=== PATIENT | male | born 1985 | race Caucasian/White ===

== ENCOUNTER 2019-08-22 00:30 | Emergency (ER) | payer OTHER, SELFPAY ==
[2019-08-22 00:36] VITALS: BP 135/79; PULSE 82; RESP 16; TEMP 36.7; O2SAT 98; BMI 27.5
--- NOTE | 2019-08-22 00:40 | CT_ITS ---
PROCEDURE: CT ABDOMEN PELVIS W CON CLINICAL INDICATION: TRAUMA TO CHEST/ABD WALL Blunt trauma with injury and pain, contusion/abrasion or hematoma following injury Mid epigastric pain COMPARISON: No exams were available for comparison TECHNIQUE: IV Contrast: 75ML OPTIRAY 350 Oral Contrast None Axial images obtained with sagittal and coronal reformats. All CT scans at the facility use one or more dose reduction, viz: automated exposure control, ma/kV adjustment per patient size (including targeted exams where dose is matched to indication, i.e. head), or iterative reconstruction technique. FINDINGS: LOWER THORAX: 4 mm subpleural opacity right middle lobe laterally nonspecific. No acute finding. ABDOMEN & PELVIS: The liver, spleen, adrenal glands, gallbladder, pancreas, and kidneys have an unremarkable appearance. There is a small hiatal hernia with mild thickening of the GE junction nonspecific. No intestinal obstruction or free air. There is a mild amount of retained colonic feces. Unremarkable appearing appendix. There is a moderate-sized right inguinal hernia with heterogeneous attenuation of the fat within the hernia. No bowel evident within the hernia. There may be a small amount fluid in the hernia posteriorly. IMPRESSION: Moderate-sized right inguinal hernia with heterogeneous attenuation. Please correlate with clinical parameters. No acute findings. Please see above for detail Dictated by: Viral Patten MD 08/22/2019 08:07 Electronically signed by Viral Patten MD in [facility] 08/22/2019 08:07
--- NOTE | 2019-08-22 00:40 | CT_ITS ---
PROCEDURE: CT ANGIO CHEST CLINCIAL INDICATION: TRAUMA TO CHEST/ABD WALL Blunt trauma with injury and pain, contusion/abrasion or hematoma following injury COMPARISON: No exams were available for comparison TECHNIQUE: IV Contrast: 70ML OPTIRAY 350 Axial images obtained with sagittal and coronal reformats. All CT scans at the facility use one or more dose reduction, viz: automated exposure control, ma/kV adjustment per patient size (including targeted exams where dose is matched to indication, i.e. head), or iterative reconstruction technique. FINDINGS: HEART AND MEDIASTINAL STRUCTURES: Faint increased density noted in the anterior mediastinal fat and may be related to residual thymic tissue. No acute finding.. LUNGS AND PLEURAL SPACES: 4 mm noncalcified nodule right middle lobe. 4 mm noncalcified nodule subpleural right middle lobe. 4 mm noncalcified nodule right lower lobe superior segment. There are a few small air cyst in both lungs. BONY STRUCTURES: Prominent thoracic kyphosis with wedging T9-T8 and T7 which appears chronic UPPER ABDOMEN: Unremarkable. ADDITIONAL FINDINGS: No other significant abnormalities. IMPRESSION: 1. No acute finding. 2. There are 3 noncalcified pulmonary nodules each measuring approximately 4 mm. Recommend six-month follow-up 3. Thoracic kyphosis Dictated by: iVral Patten MD 08/22/2019 08:12 Electronically signed by Viral Patten MD in [place] 08/22/2019 08:12
--- NOTE | 2019-08-22 00:46 | PC.NURSE ---
PT TO RAD AT THIS TIME
[2019-08-22 00:52] LABS: Basophils # 0.1 K/mm3 (0-0.2); Basophils % 0.6 % (0.1-2.0); Eosinophils # 0.3 K/mm3 (0.0-0.4); Eosinophils % 2.7 % (0.1-12.0); Hematocrit 43.6 % (42.0-52.0); Hemoglobin 14.9 g/dL (14.1-18.0); Lymphocytes # 2.9 K/mm3 (0.7-4.5); Lymphocytes % 23.8 % (10-50); Mean Corpuscular HGB Conc 34.2 g/dL (31.8-35.4); Mean Corpuscular Hemoglobin 30.2 pg (27.0-31.2); Mean Corpuscular Volume 88.2 fl (80-94); Mean Platelet Volume 8.9 fl (7.4-10.4); Monocytes # 0.9 K/mm3 (0.1-1.0); Monocytes % 7.5 % (1.7-9.3); Neutrophils # 7.8 K/mm3 (1.8-7.8); Neutrophils % 65.2 % (37.0-80.0); Platelet Count 213 K/mm3 (142-424); Red Blood Count 4.94 M/mm3 (4.60-6.20); Red Cell Distribution Width 13.7 % (11.5-17.5)
--- NOTE | 2019-08-22 00:58 | XR_ITS ---
PROCEDURE: XR CHEST PORTABLE CLINICAL HISTORY: CHEST WALL TRAUMA Blunt trauma with injury and pain, contusion/abrasion or hematoma following injury COMPARISON: CT ANGIO CHEST from 08/22/2019 FINDINGS: The cardiomediastinal silhouette and pulmonary vascularity are within normal limits. The lungs are clear without infiltrates, suspicious nodules, or pleural effusions. No acute bony abnormalities. IMPRESSION: No acute findings. Dictated by: Viral Patten MD 08/22/2019 06:50 Electronically signed by Viral Patten MD in [facility] 08/22/2019 06:50
[2019-08-22 01:00] LABS: Alanine Aminotransferase 30 U/L (12-78); Albumin Level 5.2 g/dl (3.5-5.0); Albumin/Globulin Ratio 1.4 (1.1-1.8); Alkaline Phosphatase 105 U/L (38-126); Anion Gap 12.8 mEq/L (5-15); Aspartate Amino Transferase 46 U/L (17-59); Bilirubin,Total 0.5 mg/dl (0.2-1.3); Blood Urea Nitrogen 21 mg/dl (9-20); Calcium 9.4 mg/dl (8.4-10.2); Carbon Dioxide 30 mmol/L (22.0-30.0); Chloride 98 mmol/L (98-107); Creatinine Clearance Estimated 127 mL/min (50-200); Estimated Glomerular Filt Rate 85 ml/min (>60); GFR (African American) 103 ML/MIN (>60); Globulin 3.8 g/dL (1.3-3.2); Glucose 116 mg/dl (74-100); Potassium 4.8 mmoL/L (3.5-5.1); Sodium 136 mmol/L (136-145)
--- NOTE | 2019-08-22 01:40 | [facility].EDNVD ---
ED Disposition Clinical Impression: Blunt chest trauma Qualifiers: Encounter type: initial encounter Qualified Code(s): S29.8XXA - Other specified injuries of thorax, initial encounter Disposition: Home, Self-Care Condition on Discharge: Good Instructions: DI for Atypical Chest Pain Additional Instructions: use meds and see pcp for follo wup Prescriptions: predniSONE [Prednisone 20mg Tab] 20 mg PO BID #10 tab Prescription Printed Ketorolac Tromethamine [Toradol 10mg tablet] 10 mg PO Q6H 2 Days #10 tab Prescription Printed Referrals: Erik Orellana MD [Primary Care Provider] - - Critical Care Critical Care Time: No Attestation: On 08/22/19, the high probability of a clinically significant, sudden or life threatening deterioration of the following system(s) required my full and direct attention, intervention and personal management. The time I documented below is in addition to time spent performing reported procedures but includes the following listed in this critical care notation. Medical Decision Making - Medical Records Medical records reviewed: Yes: I reviewed the patient's medical records. - Spike Inquiry Pt receiving controlled substance: No Vital Signs: 08/22/19 00:36 Temperature 98.1 F Temperature Source Oral Pulse Rate [Right Brachial] 82 Respiratory Rate 16 Blood Pressure [Right Arm] 135/79 Blood Pressure Mean [Right Arm] 97 Blood Pressure Source [Right Arm] Automatic Cuff Blood Pressure Position [Right Arm] Sitting 02 Sat by Pulse Oximetry 98 Oxygen Delivery Method Room Air - Lab Data Lab results reviewed: Yes: I reviewed the patient's lab results. Lab Results 08/22/19 00:42: WBC 12.0 H, RBC 4.94, Hgb 14.9, Hct 43.6, MCV 88.2, MCH 30.2, MCHC 34.2, RDW 13.7, Plt Count 213, MPV 8.9, Neut % (Auto) 65.2, Lymph % (Auto) 23.8, [place] % (Auto) 7.5, Eos % (Auto) 2.7, Baso % (Auto) 0.6, Neut # (Auto) 7.8, Lymph # (Auto) 2.9, [place] # (Auto) 0.9, Eos # (Auto) 0.3, Baso # (Auto) 0.1 08/22/19 00:42: Sodium 136, Potassium 4.8, Chloride 98, Carbon Dioxide 30, Anion Gap 12.8, BUN 21 H, Creatinine 1.00, Estimated Creat Clear 127, Estimated GFR 85, Est GFR ( Amer) 103, Glucose 116 H, Calcium 9.4, Total Bilirubin 0.5, AST 46, ALT 30, Alkaline Phosphatase 105, Total Protein 9.0 H, Albumin 5.2 H, Globulin 3.8 H, Albumin/Globulin Ratio 1.4 Result diagrams: 08/22/19 00:42 08/22/19 00:42 Orders (Tests/Meds): ED MEDICATIONS Discontinued Medications Generic Name Dose Route Start Last Admin Trade Name Freq PRN Reason Stop Dose Admin Ioversol 70 ml 08/22/19 01:47 08/22/19 01:48 Rad-Optiray 350 100ml Vial IV 08/22/19 01:48 70 ml ONCE ONE Administration Protocol Ketorolac Tromethamine 30 mg 08/22/19 01:34 08/22/19 01:34 Toradol 30mg/Ml Vial IV 08/22/19 01:35 30 mg ONCE ONE Administration Methylprednisolone Sodium Succinate 125 mg 08/22/19 01:53 08/22/19 01:56 Solu-Medrol 125mg/2ml Vial IV 08/22/19 01:54 125 mg ONCE ONE Administration Ondansetron HCl 4 mg 08/22/19 01:34 08/22/19 01:34 Zofran 4mg/2ml Vial IV 08/22/19 01:35 4 mg ONCE ONE Administration Orphenadrine Citrate 60 mg 08/22/19 01:53 08/22/19 01:56 Norflex 60mg/2ml Vial IM 08/22/19 01:54 60 mg ONCE ONE Administration Sodium Chloride 40 ml 08/22/19 01:47 08/22/19 01:48 Rad-Ns 50ml Vial IV 08/22/19 01:48 40 ml ONCE ONE Administration Sodium Chloride 10 ml 08/22/19 01:47 08/22/19 01:48 Rad-Saline Flush 10ml Syringe IV 08/22/19 01:48 10 ml ONCE ONE Administration ORDERS Category Date Time Status CT abdomen pelvis w con Stat Cat Scan 08/22/19 00:40 Taken CTA Chest [CT angio chest] Stat Cat Scan 08/22/19 00:40 Taken Chest XR -- portable [XR chest portable] Stat Exams 08/22/19 00:58 Taken - Radiology Data #1 Image(s): Chest Image Reviewed: Yes I reviewed the patient's radiology image Preliminary Findings: No Fracture
[2019-08-22 02:23] VITALS: BP 121/76; PULSE 73; RESP 16; TEMP 36.7; O2SAT 99
== END 2019-08-22 02:25 | disposition home or self-care (01) ==
PROVIDERS: Emergency Provider Emergency Medicine; PCP Emergency Medicine
DX: S29.8XXA Other specified injuries of thorax, initial encounter (principal); W50.0XXA Accidental hit or strike by another person, initial encounter; Y93.11 Activity, swimming; Y92.89 Other specified places as the place of occurrence of the external cause
CPT/HCPCS: 71045; 71275; 74177; 80053; 85025; 96372; 96374; 96375; 99283; J2405; Q9967

== ENCOUNTER → 2019-09-25 18:03 | Outpatient (CLI) | payer OTHER, SELFPAY | PROVIDERS: Visit Provider Family Medicine | DX: R39.198 Other difficulties with micturition (principal) | CPT/HCPCS: 87086 ==

== ENCOUNTER 2022-10-14 15:27 | Emergency (ER) | payer OTHER, SELFPAY ==
[2022-10-14 15:28] VITALS: BP 120/80; PULSE 89; RESP 18; TEMP 36.7; O2SAT 98; BMI 26.4
--- NOTE | 2022-10-14 15:58 | CA_ITS ---
FINAL REPORT TECHNIQUE: extremity venous duplex was performed with augmentation and compression. CLINICAL HISTORY: SWELLING AND REDNESS PROX ELLISON AND PROX MEDIAL CALF,PT DROPPED SAW ON THIS AREA ON 10/12/22 FINDINGS: LEFT LEG VENOUS DOPPLER: Proper flow is seen throughout the deep venous system. There is no evidence of deep venous thrombosis. There is superficial thrombophlebitis seen in the proximal calf, with associated subcutaneous soft tissue edema that most likely represents thrombosis and superficial varicosities. There is a 3.35 cm mildly enlarged left inguinal node present. IMPRESSION: No deep venous thrombosis. There is superficial thrombophlebitis seen in the proximal calf as described with associated soft tissue swelling, likely thrombosis and superficial varices. Mildly enlarged left inguinal lymph node. Reviewed, Interpreted and Dictated by Ricardo Rabago MD Transcribed by Whitney Penn Authenticated and [facility]
--- NOTE | 2022-10-14 16:01 | EXP.UTC ---
Discharge Plan Disposition Patient Disposition: Home, Self-Care Condition: Good Prescriptions Prescriptions: New cephalexin 500 mg capsule 500 mg PO QID Qty: 40 0RF sulfamethoxazole-trimethoprim [Bactrim DS] 800-160 mg tablet 1 tab PO Q12H 10 Days Qty: 20 0RF No Action sildenafil 100 mg tablet 100 mg PO DAILY PRN (Reason: sexual activity) Qty: 30 10RF Rx Instructions: administer 30 minutes to 1 hours before activity buprenorphine-naloxone [Suboxone] 12-3 mg film 1 film BUCCAL Q24H Referrals Follow up/Referrals: Provider,Referral, [Primary Care Provider] - See instructions Activity Restrictions/Add. Instructions Additional Instructions/Restrictions: Take medication as prescribed Follow up with your Family Doctor if no improvement or any worsening of symptoms Straight to ER if any worsening of swelling, numbness fevers etc Return if needed *Start antibiotic(s) immediately and be sure to take as ordered for the FULL length of time although you may be feeling better or start to see improvement in the next 24-48 hours *Monitor closely. Outlined redness so that you can monitor easier. Follow up immediately for new or worsening symptoms including but not limited to redness, swelling, streaking from site fever or chills. *Warm compress 15 minutes 3-4 times day Monitor Temp. Tylenol every 4 hours as needed and ibuprofen every 6 hours as needed (as long as your primary care doctor has told you that it is ok to take both. For fever, aches, pain. ER if no less that 101 despite Tylenol and ibuprofen ?Follow up with your family doctor/primary care physician in the next 48-72 hours if no improvement Clinical Impressions Clinical Impression: Superficial thrombophlebitis Qualifiers: Superficial thrombophlebitis-Involved body area: lower extremity Laterality: left Qualified Code(s): I80.02 - Phlebitis and thrombophlebitis of superficial vessels of left lower extremity Stand Alone Forms Stand Alone Forms: Work/School Release Instructions Patient Instructions: DI for Cellulitis -- Adult, DI for Superficial Thrombophlebitis Discharge ED Provider: Jess Guzman [facility] General Stated complaint: AO 10/12, left leg swelling Mode of Arrival: Ambulatory Source of Information: Patient Limitations: No Limitations Time Seen by Provider: 10/14/22 16:01 Description of Symptoms (Recalled from Triage Doc. by RN): Patient reports his left leg is swollen and hot to touch. Does report that a saw did hit that leg. HEENT Symptoms (Recalled from RN notes): No Resp Symptoms (Recalled from RN notes): No Skin Symptoms (Recalled from RN notes): No MS Symptoms (Recalled from RN notes): Yes Functional Status (Recalled from RN notes): wnl History of Present Illness Provider Complaint: Patient state that he was moving a table saw and it fell and the metal bar hit him in the left lower leg just below the knee State that now it is red, warm and swollen so today he came in to get it checked Related Data Home Medications Medication Instructions Recorded Confirmed buprenorphine 12 mg-naloxone 3 mg 1 film buccal Q24H 09/25/19 12/23/21 sublingual film (Suboxone) Previous Rx's Medication Instructions Recorded sildenafil 100 mg tablet 100 mg PO DAILY PRN sexual 12/23/21 activity #30 tabs cephalexin 500 mg capsule 500 mg PO QID #40 caps 10/14/22 sulfamethoxazole 800 1 tab PO Q12H 10 days #20 tabs 10/14/22 mg-trimethoprim 160 mg tablet (Bactrim DS) Allergies Allergy/AdvReac Type Severity Reaction Status Date / Time No Known Allergies Allergy Verified 12/23/21 09:24 Worker's Comp Is this a Worker's Comp case?: No [facility] Disclaimer: The information contained in this section may have been updated after the patient was seen, as this information can be updated by other users. Social History (Updated 12/23/21 @ 09:24 by PADMINI Velasquez) Smoking Status: Former smoker alcohol intake: n
[2022-10-14 16:57] VITALS: BP 120/80; PULSE 89; RESP 18; TEMP 36.7; O2SAT 98
== END 2022-10-14 16:58 | disposition home or self-care (01) ==
PROVIDERS: Emergency Provider Nurse Practitioner
DX: I80.02 Phlebitis and thrombophlebitis of superficial vessels of left lower extremity (principal); W20.8XXA Other cause of strike by thrown, projected or falling object, initial encounter; Z87.891 Personal history of nicotine dependence
CPT/HCPCS: 93971; 99204; 99212; G0463

== ENCOUNTER 2023-10-21 11:22 | Outpatient (CLI) | payer OTHER, SELFPAY ==
[2023-10-21 12:07] LABS: Basophils % 0.8 % (0.1-2.0); Eosinophils # 0.4 K/mm3 (0.0-0.4); Eosinophils % 8.7 % (0.1-12.0); Hematocrit 46.1 % (42.0-52.0); Hemoglobin 14.4 g/dL (14.1-18.0); Lymphocytes # 1.8 K/mm3 (0.7-4.5); Lymphocytes % 38.6 % (10-50); Mean Corpuscular HGB Conc 31.4 g/dL (31.8-35.4); Mean Corpuscular Hemoglobin 29.2 pg (27.0-31.2); Mean Corpuscular Volume 93.3 fl (80-94); Mean Platelet Volume 9.4 fl (7.4-10.4); Monocytes # 0.4 K/mm3 (0.1-1.0); Monocytes % 8.6 % (1.7-9.3); Neutrophils % 43.3 % (37.0-80.0); Platelet Count 183 K/mm3 (142-424); Red Blood Count 4.94 M/mm3 (4.60-6.20); Red Cell Distribution Width 13.9 % (11.5-17.5); White Blood Count 4.6 K/mm3 (4.8-10.8)
[2023-10-21 12:40] LABS: Alanine Aminotransferase 23 U/L (12-78); Albumin Level 4.1 g/dl (3.5-5.0); Albumin/Globulin Ratio 1.3 (1.1-1.8); Alkaline Phosphatase 76 U/L (38-126); Anion Gap 10.4 mEq/L (5-15); Aspartate Amino Transferase 34 U/L (17-59); Bilirubin,Total 0.5 mg/dl (0.2-1.3); Blood Urea Nitrogen 15 mg/dl (9-20); Calcium 8.9 mg/dl (8.4-10.2); Carbon Dioxide 26 mmol/L (22.0-30.0); Chloride 104 mmol/L (98-107); Estimated Glomerular Filt Rate 108 ml/min (>60); GFR (African American) 130 ML/MIN (>60); Globulin 3.1 g/dL (1.3-3.2); Glucose 118 mg/dl (74-100); Potassium 4.4 mmoL/L (3.5-5.1); Sodium 136 mmol/L (136-145); Total Protein,Serum 7.2 g/dl (6.3-8.2)
[2023-10-22 05:12] LABS: Hep B Core Ab, Total Negative (Negative); Hep B Surface Ab, Qual Non Reactive (.); Hep Be Ag Negative (Negative)
[2023-10-22 10:44] LABS: HIV (1&2) Antibody Rapid NONREACTIVE (NONREACTIVE)
[2023-10-22 12:14] LABS: Rapid Plasma Reagin Ab Titer Non Reactive titer (NonRea<1:1)
[2023-10-25 18:09] LABS: HCV Ab Reactive (Non Reactive)
[2023-10-26 08:20] LABS: QuantiFERON-TB Gold Plus Negative (Negative)
== END 2023-10-21 23:59 | disposition home or self-care (01) ==
LOC: LAB 11:22
PROVIDERS: PCP Nurse Practitioner Family; Visit Provider Nurse Practitioner Family
DX: F11.21 Opioid dependence, in remission (principal); F14.11 Cocaine abuse, in remission; F17.290 Nicotine dependence, other tobacco product, uncomplicated
CPT/HCPCS: 36415; 80053; 85025; 86480; 86593; 86704; 86706; 86803; 87350

== ENCOUNTER 2024-06-23 19:38 | Outpatient (CLI) | payer OTHER, SELFPAY | END 2024-06-23 23:59 | disposition home or self-care (01) | LOC: LAB.DROPOF 06-26 09:52 | PROVIDERS: PCP Nurse Practitioner; Visit Provider Nurse Practitioner | DX: Z20.01 Contact with and (suspected) exposure to intestinal infectious diseases due to Escherichia coli (E. coli) (principal) | CPT/HCPCS: 87086 ==